=== PATIENT | female | born 1985 | race Caucasian/White ===

== ENCOUNTER 2017-08-02 14:57 | Emergency (ER) | payer OTHER ==
[~2017-08-02] VITALS: Ht 175.3 cm; Wt 143.0 kg
[~2017-08-02 14:57] MED LIST: DICL-86 PO; Z.0.NO CURRENT MEDS
[2017-08-02 15:00] VITALS: BP 140/68; PULSE 77; RESP 14; TEMP 98.9; O2SAT 98
[2017-08-02] MEDS ORDERED: SODIUM CHLORIDE 0.9% FLUSH 10 ML FLUSH IV FLUSH PRN (16:45)
[2017-08-02] MEDS ORDERED: ONDANSETRON HCL 4 MG/2 ML VIAL IVP ONE (16:45)
[2017-08-02] MEDS ORDERED: FAMOTIDINE 20 MG/2 ML VIAL IV PUSH ONE (16:45)
[2017-08-02] MEDS ORDERED: MORPHINE SULFATE 2 MG/ML INJ IV PUSH ONE (16:45)
--- NOTE | 2017-08-02 16:48 | PD ---
Physical Exam Date Seen by Provider: Aug 02, 2017 Narrative Patient presents with chief complaint of abdominal pain. Onset was last night. She states that it started as periumbilical pain has now moved to the right lower quadrant. It is associated with nausea and vomiting. Data Data Last Documented VS Vital Signs Date Time Temp Pulse Resp B/P (MAP) Pulse Ox O2 Delivery O2 Flow Rate FiO2 08/02/17 15:00 98.9 77 14 140/68 (92) 98 Orders Orders Complete Blood Count With Diff (08/02/17 16:32) Comprehensive Metabolic Panel (08/02/17 16:32) Lipase (08/02/17 16:32) Urinalysis - C+S If Indicated (08/02/17 16:32) Iv Access Insert/Monitor (08/02/17 16:32) Ecg Monitoring (08/02/17 16:32) Oximetry (08/02/17 16:32) Ondansetron Inj (Zofran Inj) (08/02/17 16:45) Sodium Chloride 0.9% Flush (Ns Flush) (08/02/17 16:45) Famotidine Inj (Pepcid Inj) (08/02/17 16:45) Ed Urine Pregnancytest Poc (08/02/17 16:32) Ct Abd/Pel W Iv Contrast(Rout) (08/02/17 ) Morphine Inj (Morphine Inj) (08/02/17 16:45) Gc And Chlamydia Pcr (08/02/17 16:45) Wet Prep Profile (08/02/17 16:45) MDM Supervised Visit with KENNEDI: Yes Narrative Course I, Dr. Overton, have reviewed the advance practice practitioner's documentation and am in agreement, met with the patient face to face, made the diagnosis, and the medical decision making was done by me. *My assessment and Findings: Awake and alert. She does have right lower quadrant tenderness. Please see Elzbieta Jackson NP's note for laboratory and radiology results, final diagnosis and disposition Roula Overton MD Aug 02, 2017 16:48
--- NOTE | 2017-08-02 16:54 | PD ---
HPI Chief Complaint: Abdominal Pain Time Seen by Provider: 16:39 Travel History International Travel<30 days: No Contact w/Intl Traveler<30days: No Traveled to known affect area: No History of Present Illness HPI 32-year-old female presents to the emergency department for evaluation of abdominal pain that started last night. She also reports vomiting for 2 days and diarrhea. She states she has not vomited since last night. She reports 2 episodes of diarrhea without blood today. No fevers or chills. No chest pain or shortness of breath. She states the pain is in the right lower quadrant, pelvic region. She reports history of cholecystectomy and polycystic ovarian syndrome. She states this pain is not typical for her. She also has history of hypertension, but is not compliant with her medication. She denies . She denies any risk of STD, but states she is having some vaginal discharge. She denies urinary symptoms. No exacerbating or alleviating factors. Moderate severity. PFSH Past Medical History ?: Not LMP: JUL 14, 2017 : 0 Social History Alcohol Use: No Tobacco Use: No Substance Use: No Allergies-Medications (Allergen,Severity, Reaction): Coded Allergies: No Known Allergies (Verified Allergy, Unknown, 08/02/17) Reported Meds & Prescriptions Reported Meds & Active Scripts Active Macrobid (Nitrofurantoin Monohydrate Macrocrystals) 100 Mg Capsule 100 Mg PO BID 7 Days Voltaren (Diclofenac Sodium) 75 Mg Tabec 75 Mg PO BID Reported No Current Meds (Miscellaneous Medication) Misc Review of Systems Except as stated in HPI: all other systems reviewed are Neg Physical Exam Narrative GENERAL: Well-nourished, well-developed female patient, ambulatory. Afebrile. SKIN: Focused skin assessment warm/dry. HEAD: Normocephalic. Atraumatic. EYES: No scleral icterus. No injection or drainage. NECK: Supple, trachea midline. No JVD or lymphadenopathy. CARDIOVASCULAR: Regular rate and rhythm without murmurs, gallops, or rubs. RESPIRATORY: Breath sounds equal bilaterally. No accessory muscle use. Lungs sounds are clear to auscultation. GASTROINTESTINAL: Abdomen soft and nondistended. Patient has tenderness to RLQ , lower abdomen. MUSCULOSKELETAL: No cyanosis, or edema. BACK: Nontender without obvious deformity. No CVA tenderness. GENITOURINARY: Normal external genitalia without lesions or erythema. Vaginal vault without blood, white drainage noted. Cervical os was closed without drainage. No cervical motion tenderness. Uterus nontender and nonenlarged. Bilateral adnexa nontender without masses. This exam was done with RN at bedside. Data Data Last Documented VS Vital Signs Date Time Temp Pulse Resp B/P (MAP) Pulse Ox O2 Delivery O2 Flow Rate FiO2 08/02/17 17:13 Nasal Cannula 08/02/17 15:00 98.9 77 14 98 Orders Orders Complete Blood Count With Diff (08/02/17 16:32) Comprehensive Metabolic Panel (08/02/17 16:32) Lipase (08/02/17 16:32) Urinalysis - C+S If Indicated (08/02/17 16:32) Iv Access Insert/Monitor (08/02/17 16:32) Ecg Monitoring (08/02/17 16:32) Oximetry (08/02/17 16:32) Ondansetron Inj (Zofran Inj) (08/02/17 16:45) Sodium Chloride 0.9% Flush (Ns Flush) (08/02/17 16:45) Famotidine Inj (Pepcid Inj) (08/02/17 16:45) Ed Urine Pregnancytest Poc (08/02/17 16:32) Ct Abd/Pel W Iv Contrast(Rout) (08/02/17 ) Morphine Inj (Morphine Inj) (08/02/17 16:45) Gc And Chlamydia Pcr (08/02/17 16:45) Wet Prep Profile (08/02/17 16:45) Sodium Chlor 0.9% 1000 Ml Inj (Ns 1000 M (08/02/17 17:00) Urine Culture (08/02/17 16:40) Iohexol 350 Inj (Omnipaque 350 Inj) (08/02/17 18:07) Ed Discharge Order (08/02/17 18:51) Nitrofurantoin Monohyd Macrocr (Macrobid (08/02/17 19:00) Labs Laboratory Tests Test 08/02/17 16:40 08/02/17 17:40 White Blood Count 7.8 TH/MM3 Red Blood Count 3.99 MIL/MM3 Hemoglobin 9.8 GM/DL Hematocrit 29.2 % Mean Corpuscular Volume 73.2 FL Mean Corpuscular Hemoglobin 24.7 PG Mean Corpuscular Hemoglobin Concent 33.7 % Red Cell Distribution Width 15.4 % Platelet Count 260 TH/MM3 Mean Platelet Volume 9.0 FL Neutrophils (%) (Auto) 48.7 % Lymphocytes (%) (Auto) 42.2 % Monocytes (%) (Auto) 8.0 % Eosinophils (%) (Auto) 0.7 % Basophils (%) (Auto) 0.4 % Neutrophils # (Auto) 3.8 TH/MM3 Lymphocytes # (Auto) 3.3 TH/MM3 Monocytes # (Auto) 0.6 TH/MM3 Eosinophils # (Auto) 0.1 TH/MM3 Basophils # (Auto) 0.0 TH/MM3 CBC Comment DIFF FINAL Differential Comment Urine Color LIGHT-ORANGE Urine Turbidity CLOUDY Urine pH 5.5 Urine Specific Lennon 1.031 Urine Protein TRACE mg/dL Urine Glucose (UA) NEG mg/dL Urine Ketones NEG mg/dL Urine Occult Blood NEG Urine Nitrite NEG Urine Bilirubin NEG Urine Urobilinogen LESS THAN 2.0 MG/DL Urine Leukocyte Esterase NEG Urine RBC 4 /hpf Urine WBC 3 /hpf Urine Squamous Epithelial Cells 32 /hpf Urine Bacteria MANY /hpf Urine Mucus MANY /lpf Microscopic Urinalysis Comment CULTURE INDICATED Blood Urea Nitrogen 11 MG/DL Creatinine 0.61 MG/DL Random Glucose 93 MG/DL Total Protein 8.1 GM/DL Albumin 3.7 GM/DL Calcium Level 8.6 MG/DL Alkaline Phosphatase 70 U/L Aspartate Amino Transf (AST/SGOT) 34 U/L Alanine Aminotransferase (ALT/SGPT) 44 U/L Total Bilirubin 1.6 MG/DL Sodium Level 138 MEQ/L Potassium Level 3.7 MEQ/L Chloride Level 105 MEQ/L Carbon Dioxide Level 26.3 MEQ/L Anion Gap 7 MEQ/L Estimat Glomerular Filtration Rate 114 ML/MIN Lipase 145 U/L Clue Cells (Wet Prep) NONE SEEN Vaginal Trichomonas (Wet Prep) NONE SEEN Vaginal Yeast (Wet Prep) NONE SEEN MDM Medical Decision Making Medical Screen Exam Complete: Yes Emergency Medical Condition: Yes Medical Record Reviewed: Yes Interpretation(s) Last Impressions Abdomen/Pelvis CT 08/02/17 0000 Signed Impressions: Service Date/Time: Wednesday, August 02, 2017 18:06 - CONCLUSION: 1. Nonspecific hepatosplenomegaly. 2. Otherwise negative. No obstruction or acute inflammatory changes are demonstrated. Appendix and reproductive organs within normal limits. No free fluid. Aden Patrick MD Differential Diagnosis appendicitis vs. ovarian cyst vs. UTI vs. pyelonephritis vs. diverticulitis vs. cervicitis Narrative Course 32 year old female presents to the emergency department for evaluation of abdominal pain that started last night. IV access established. CBC, CMP, lipase, UA, urine test swabs for GC and chlamydia as well as wet prep are ordered and pending. Patient is given Zofran 4 mg IV, morphine 4 mg IV, famotidine 20 mg IV, normal saline [address] abdomen/pelvis with IV contrast is ordered and pending. CBC shows anemia with hemoglobin 9.8, hematocrit 29.2. CMP shows no acute abnormality. Lipase is 145. UA shows 4 RBCs, many bacteria. UPT is negative. Wet prep is negative for Trichomonas, clue cells, yeast. CT abdomen/pelvis shows nonspecific hepatosplenomegaly, otherwise negative, no obstruction or acute inflammatory changes are demonstrated. Appendix and reproductive organs are within normal limits. No free fluid. Patient will be started on Macrobid for UTI. She is to follow-up with a primary care physician. She is return here for any acute worsening of symptoms. Diagnosis Primary Impression: Urinary tract infection Qualified Codes: N30.01 - Acute cystitis with hematuria Additional Impression: Abdominal pain Qualified Codes: R10.30 - Lower abdominal pain, unspecified Referrals: Primary Care Physician call for appointment Patient Instructions: Abdominal Pain (ED), General Instructions, Urinary Tract Infection in Women (ED) Departure Forms: Tests/Procedures, Work Release Enter return to work date: Aug 04, 2017 Additional Instructions: Take Macrobid as directed until gone Follow-up with your primary care physician. Return to the emergency department for any acute worsening of symptoms. Med/Other Pt SpecificInfo: Prescription(s) given Scripts Nitrofurantoin Monohydrate Macrocrystals (Macrobid) 100 Mg Capsule 100 MG PO BID for Infection for 7 Days, #14 CAP 0 Refills Prov: Elzbieta Jackson 08/02/17 Disposition: 01 DISCHARGE HOME Condition: Stable Elzbieta Jackson Aug 02, 2017 16:54
[2017-08-02] MEDS ORDERED: SODIUM CHLOR 0.9% 1000 ML INJ 1,000 ML IV ONE (17:00)
[2017-08-02 17:15] LABS: AUTOMATED NEUTROPHIL # 3.8 TH/MM3 (1.8-7.7); BASOPHIL % 0.4 % (0.0-2.0); EOSINOPHIL # 0.1 TH/MM3 (0-0.4); EOSINOPHIL % 0.7 % (0.0-4.0); HEMATOCRIT 29.2 % (35.0-46.0); HEMOGLOBIN 9.8 GM/DL (11.6-15.3); LYMPH % 42.2 % (9.0-44.0); LYMPHOCYTE # 3.3 TH/MM3 (1.0-4.8); MEAN CELL VOLUME 73.2 FL (80.0-100.0); MEAN CORPUSCULAR HEMOGLOBIN 24.7 PG (27.0-34.0); MEAN CORPUSCULAR HGB CONC 33.7 % (32.0-36.0); MONOCYTE # 0.6 TH/MM3 (0-0.9); NEUT % 48.7 % (16.0-70.0); PLATELET COUNT 260 TH/MM3 (150-450); RED BLOOD COUNT 3.99 MIL/MM3 (4.00-5.30); RED CELL DISTRIBUTION WIDTH 15.4 % (11.6-17.2); WHITE BLOOD COUNT 7.8 TH/MM3 (4.0-11.0)
[2017-08-02 17:40] LABS: BACTERIA, URINE MANY /hpf; BILIRUBIN, URINE NEG (NEG); BLOOD, URINE NEG (NEG); GLUCOSE,URINE NEG (NEG); KETONE, URINE NEG (NEG); MUCUS URINE MANY /lpf (OCC); NITRITE,URINE NEG (NEG); PH, URINE 5.5 (5.0-8.5); SQUAMOUS EPITHELIAL CELL URINE 32 /hpf (0-5); URINE LEUKOCYTE ESTERASE NEG (NEG)
[2017-08-02 17:41] LABS: URINE COLOR LIGHT-ORANGE (YELLW/STRAW)
[2017-08-02 17:52] LABS: ALBUMIN 3.7 GM/DL (3.4-5.0); AST (GOT) 34 U/L (15-37); BICARBONATE 26.3 MEQ/L (21.0-32.0); BLOOD UREA NITROGEN 11 MG/DL (7-18); CALCIUM 8.6 MG/DL (8.5-10.1); CHLORIDE 105 MEQ/L (98-107); CREATININE 0.61 MG/DL (0.50-1.00); GLOMERULAR FILTRATION RATE 114 ML/MIN (>89); GLUCOSE,RANDOM 93 MG/DL (74-106); LIPASE 145 U/L (73-393); SODIUM (NA) 138 MEQ/L (136-145)
[2017-08-02 17:55] LABS: ALKALINE PHOSPHATASE 70 U/L (45-117); ALT (GPT) 44 U/L (10-53); TOTAL BILIRUBIN ADULT 1.6 MG/DL (0.2-1.0); TOTAL PROTEIN 8.1 GM/DL (6.4-8.2)
[2017-08-02] MEDS ORDERED: IOHEXOL 350 MG/ML 10 ML VIAL (for RAD DIAG) IVCONTRAST ONE (18:07)
--- NOTE | 2017-08-02 18:36 | RADRPT ---
EXAM DATE/TIME: 08/02/2017 18:06 [facility] COMPARISON: No previous studies available for comparison. INDICATIONS : Bilateral lower abdominal pain; right worse than left. IV CONTRAST: 81 cc Omnipaque 350 (iohexol) IV ORAL CONTRAST: No oral contrast ingested. RADIATION DOSE: 31.67 CTDIvol (mGy) ; Patient body habitus MEDICAL HISTORY : None SURGICAL HISTORY : Cholecystectomy. ENCOUNTER: Initial ACUITY: 1 day PAIN SCALE: 6/10 LOCATION: Bilateral lower quadrant abdomen TECHNIQUE: Volumetric scanning of the abdomen and pelvis was performed. Using automated exposure control and ad justment of the mA and/or kV according to patient size, radiation dose was kept as low as reasonably achievable to obtain optimal diagnostic quality images. DICOM format image data is available electro nically for review and comparison. FINDINGS: LOWER LUNGS: The visualized lower lungs are clear. LIVER: Homogeneous density without lesion. 23 cm craniocaudal. There is no dilation of the biliary tree. N o calcified gallstones. SPLEEN: 20 cm craniocaudal. No focal splenic lesion. PANCREAS: Within normal limits. KIDNEYS: Normal in size and shape. There is no mass, stone or hydronephrosis. ADRENAL GLANDS: Within normal limits. VASCULAR: There is no aortic aneurysm. BOWEL/MESENTERY: The stomach, small bowel, and colon demonstrate no acute abnormality. There is no free intraperitone al air or fluid. Appendix is well-visualized, normal. ABDOMINAL WALL: Within normal limits. RETROPERITONEUM: There is no lymphadenopathy. BLADDER: No wall thickening or mass. REPRODUCTIVE: Within normal limits. INGUINAL: There is no lymphadenopathy or hernia. MUSCULOSKELETAL: No acute bony abnormality demonstrated. CONCLUSION: 1. Nonspecific hepatosplenomegaly. 2. Otherwise negative. No obstruction or acute inflammatory changes are demonstrated. Appendix and re productive organs within normal limits. No free fluid. Aden Patrick MD on August 02, 2017 at 18:32 Board Certified Radiologist. This report was verified electronically.
[2017-08-02] MEDS ORDERED: MACR100C2 PO (18:50)
[2017-08-02] MEDS ORDERED: NITROFURANTOIN MONOHYD MACROCR 100 MG CAP PO ONE (19:00)
[2017-08-02 19:19] VITALS: BP 139/79
== END 2017-08-02 19:29 | disposition home or self-care (01) ==
LOC: NEPD 14:57
DX: N30.01 Acute cystitis with hematuria (principal); R16.2 Hepatomegaly with splenomegaly, not elsewhere classified
CPT/HCPCS: 74177; 80053; 81001; 83690; 84703; 85025; 87086; 87210; 87491; 87591; 96361; 96374; 96375; 99285; J2270; J2405; J7030; Q9967